=== PATIENT | male | born 1945 | race American Indian/Alaskan Native ===

== ENCOUNTER 2018-10-11 12:52 | Inpatient (IN) | payer MEDICARE ==
[2018-10-11] MEDS ORDERED: CATAPRES PO ONE (13:28)
[2018-10-11] MEDS ORDERED: CATAPRES ONE (13:31)
--- NOTE | 2018-10-11 13:52 | Emergency Department Report ---
HPI - General Chief Complaint: High BP Time Seen by Provider: 10/11/18 13:24 - HPI HPI: Room 25 The patient is a 72-year-old male presenting with a chief complaint of hypertension. The patient states he ran out of his blood pressure medication yesterday's physician's office today for evaluation. At physician's office the patient was found to be hypertensive at 224/110 and per the physician's documentation "malignant hypertension, hygiene, self-neglect, noncompliant, please evaluate." Patient denies any complaints 16:01 Up-to-date per social work. Family provides further history stating that the patient's son is unable to care for him at home and the patient's states that he is combative at times. 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) - Surgical History Additional Surgical History: Colostomy - Family History Family history: no significant - Social History Smoking Status: Unknown if ever smoked Substance Use Type: Alcohol (occasional) ED Review of Systems ROS: Stated complaint: HBP Other details as noted in HPI Constitutional: no symptoms reported Eyes: denies: eye pain ENT: denies: throat pain Respiratory: no symptoms reported Cardiovascular: denies: chest pain Endocrine: no symptoms reported Gastrointestinal: denies: abdominal pain Genitourinary: denies: dysuria Musculoskeletal: denies: back pain Neurological: denies: headache Physical Exam - Physical Exam Vital Signs: Vital Signs 10/11/18 13:22 Temperature 98.7 F Pulse Rate 98 H Respiratory 18 Rate Blood Pressure 234/124 O2 Sat by Pulse 96 Oximetry Physical Exam: GENERAL: The patient is well-developed well-nourished male lying on stretcher not appear to be in acute distress. Odor from colostomy bag is present HEENT: Normocephalic. Atraumatic. Extraocular motions are intact. Patient has moist mucous membranes. NECK: Supple. Trachea midline CHEST/LUNGS: Clear to auscultation. There is no respiratory distress noted. HEART/CARDIOVASCULAR: Regular. There is no tachycardia. There is no gallop rub or murmur. ABDOMEN: Abdomen is soft, nontender. Patient has normal bowel sounds. There is no abdominal distention. SKIN: There is no rash. There is no edema. There is no diaphoresis. NEURO: The patient is awake, alert, and oriented. The patient is cooperative. The patient has no focal neurologic deficits. The patient has normal speech. Cranial nerves II through XII grossly intact, no drift MUSCULOSKELETAL: There is no evidence of acute injury. ED Course Vital Signs 10/11/18 13:22 Temperature 98.7 F Pulse Rate 98 H Respiratory 18 Rate Blood Pressure 234/124 O2 Sat by Pulse 96 Oximetry ED Medical Decision Making - Lab Data Result diagrams: 10/11/18 13:44 10/11/18 13:44 - Differential Diagnosis hypertension Critical care attestation.: If time is entered above; I have spent that time in minutes in the direct care of this critically ill patient, excluding procedure time. ED Disposition Clinical Impression: Hypertension, Combative behavior Disposition: DC-09 OP ADMIT IP TO THIS HOSP Is pt being admited?: Yes Does the pt Need Aspirin: No Condition: Fair Instructions: Hypertension (ED) Time of Disposition: 16:02 (hospitalist paged (Dr Lopez))
[2018-10-11 14:12] LABS: Basophils % (Auto) 0.9 % (0.0-1.8); Eosinophils # (Auto) 0.1 K/mm3 (0.0-0.4); Hematocrit 46.1 % (35.5-45.6); Hemoglobin 15.4 gm/dl (11.8-15.2); Lymphocytes # (Auto) 1.5 K/mm3 (1.2-5.4); Mean Corpuscular HGB Conc 33 % (32-34); Mean Corpuscular Volume 97 fl (84-94); Monocytes # (Auto) 0.5 K/mm3 (0.0-0.8); Monocytes % (Auto) 8.5 % (0.0-7.3); Platelet Count 305 K/mm3 (140-440); Red Blood Count 4.76 M/mm3 (3.65-5.03); Red Cell Distribution Width 13.7 % (13.2-15.2)
[2018-10-11 14:26] LABS: BUN/Creatinine Ratio 15; Blood Urea Nitrogen 12 mg/dL (9-20); Calcium 9.2 mg/dL (8.4-10.2); Hemolysis Index 25
--- NOTE | 2018-10-11 16:02 | History and Physical Report ---
History of Present Illness Chief complaint: they playing games History of present illness: 72 YO Male with HTN, Cancer, Dementia, Medication Noncomplilance presents to ED for evaluation. Pt is confused and unable to provide coherent and detailed history. Pt history taken from ED staff, and medical record. Pt was seen by his Primary Care Physician today and was found to be hypertensive at 224/110. Pt subsequently transported to [facility] for further care and evaluation. Pt seen and evaluated in ED and found to have symptoms consistent with Hypertensive Encephalopathy. Pt admitted to [facility] unit and initiated on antihypertensive therapy. No further history obtainable. Past History Past Medical History: cancer, hypertension, other (Dementia) Past Surgical History: bowel surgery Social history: . denies: smoking, alcohol abuse, prescription drug abuse Family history: hypertension Medications and Allergies Allergies Allergy/AdvReac Type Severity Reaction Status Date / Time No Known Allergies Allergy Verified 10/11/18 13:22 Home Medications Medication Instructions Recorded Confirmed Last Taken Type Aspirin EC [Aspirin Enteric Coated 81 mg PO QDAY 10/11/18 10/11/18 Unknown History TAB] Atorvastatin Calcium [Lipitor] 40 mg PO QDAY 10/11/18 10/11/18 Unknown History FLUoxetine [PROzac] 20 mg PO QDAY 10/11/18 10/11/18 Unknown History Gabapentin [Neurontin] 300 mg PO BID 10/11/18 10/11/18 Unknown History Hydralazine HCl 25 mg PO BID 10/11/18 10/11/18 Unknown History Mirtazapine [Remeron] 15 mg PO QDAY 10/11/18 10/11/18 Unknown History Tamsulosin HCl [Flomax] 0.4 mg PO DAILY 10/11/18 10/11/18 Unknown History Verapamil ER [Calan Sr] 240 mg PO QDAY 10/11/18 10/11/18 Unknown History Review of Systems ROS unobtainable: due to mental status Exam - Constitutional Vitals: Temp Pulse Resp BP Pulse Ox 98.7 F 98 H 18 234/124 96 10/11/18 13:22 10/11/18 13:22 10/11/18 13:22 10/11/18 13:22 10/11/18 13:22 General appearance: Present: mild distress - EENT Eyes: Present: PERRL ENT: hearing intact, clear oral mucosa - Neck Neck: Present: supple, normal ROM - Respiratory Respiratory effort: normal Respiratory: bilateral: CTA - Cardiovascular Heart Sounds: Present: S1 & S2. Absent: rub, click - Extremities Extremities: pulses symmetrical, No edema Peripheral Pulses: within normal limits - Abdominal General gastrointestinal: Present: soft, non-tender, non-distended, normal bowel sounds Male genitourinary: Present: normal - Integumentary Integumentary: Present: clear, warm, dry - Musculoskeletal Musculoskeletal: gait normal, strength equal bilaterally - Psychiatric Psychiatric: no intact judgment & insight, no memory intact, cooperative - Neurologic Neurologic: CNII-XII intact, moves all extremities, no gait normal Results - Labs CBC & Chem 7: 10/11/18 13:44 10/11/18 13:44 Labs: Abnormal lab results 10/11/18 10/11/18 Range/Units 13:44 13:44 Hgb 15.4 H (11.8-15.2) gm/dl Hct 46.1 H (35.5-45.6) % MCV 97 H (84-94) fl [place] % (Auto) 8.5 H (0.0-7.3) % Carbon Dioxide 21 L (22-30) mmol/L Assessment and Plan - Patient Problems (1) Encephalopathy Current Visit: Yes Status: Acute Plan to address problem: CT Head, Neuro checks, aspiration precautions, seizure precautions, fall precautions, thyroid panel (2) Malignant hypertension Current Visit: Yes Status: Acute Plan to address problem: monitor BP q shift, Amlodipine, IV hydralazine prn, (3) Acidosis Current Visit: Yes Status: Acute Plan to address problem: supportive care, repeat bmp (4) DVT prophylaxis Current Visit: Yes Status: Acute Plan to address problem: SCD to BLe while in bed.
[2018-10-11] MEDS ORDERED: PROVENTIL IH PRN (16:03)
[2018-10-11] MEDS ORDERED: SODIUM CHLORIDE FLUSH SYRINGE 10 ML IV PRN (16:03)
[2018-10-11] MEDS ORDERED: ZOFRAN IV PRN (16:03)
[2018-10-11] MEDS ORDERED: APRESOLINE IV PRN (16:08)
--- NOTE | 2018-10-11 19:09 | Cat Scan Report ---
FINAL REPORT EXAM: CT HEAD/BRAIN WO CON HISTORY: confusion TECHNIQUE: CT head without contrast PRIORS: None. FINDINGS: No acute intra-axial or extra-axial hemorrhage is identified. There is no evidence of midline shift or mass effect. The ventricles and sulci are within normal limits. Chopra-white matter differentiation is intact. No acute parenchymal abnormalities seen. Bony calvarium is grossly intact. There is opacity within the visualized portions of the maxillary si nuses as well as ethmoid and frontal air cells more prominent on the left than on the right. IMPRESSION: Negative CT head
[2018-10-11 20:29] LABS: Free T4 (Free Thyroxine) 1.23 ng/dL (0.76-1.46)
[2018-10-11] MEDS: SODIUM CHLORIDE FLUSH SYRINGE 10 ML IV SCH (21:24)
[2018-10-11] MEDS: TYLENOL PO PRN (21:25)
[2018-10-12 05:35] LABS: Bacteria,Urine 2+ /HPF (Negative); Bilirubin,Urine NEG (Negative); Blood,Urine NEG (Negative); Color,Urine Yellow (Yellow); Mucus,Urine FEW /HPF; Urobilinogen,Urine < 2.0 mg/dL (<2.0)
[2018-10-12] MEDS: TYLENOL PO PRN ×2 (06:25→20:02)
--- NOTE | 2018-10-12 08:50 | Progress Note ---
Assessment and Plan Assessment and plan: 72 YO Male with HTN, Cancer, Dementia, Medication Noncompliance presents to ED for evaluation. Pt is confused and unable to provide coherent and detailed history. Pt history taken from ED staff, and medical record. Pt was seen by his Primary Care Physician today and was found to be hypertensive at 224/110. Pt subsequently transported to [facility] for further care and evaluation. Pt seen and evaluated in ED and found to have symptoms consistent with Hypertensive Encephalopathy. Pt admitted to [facility] unit and initiated on antihypertensive therapy. No further history obtainable. (1) Acute Metabolic Encephalopathy Current Visit: Yes Status: Acute Plan to address problem: CT Head Shows no acute pathology Neuro checks, aspiration precautions, seizure precautions, fall precautions, thyroid panel WNL (2) Malignant hypertension Current Visit: Yes Status: Acute Plan to address problem: monitor BP q shift, Amlodipine, IV hydralazine prn, Improved. (3) Acidosis Current Visit: Yes Status: Acute Plan to address problem: supportive care, repeat bmp (4) Acute Cystitis Start on Rocephin and await urine culture (5) DVT prophylaxis Current Visit: Yes Status: Acute Plan to address problem: SCD to BLe while in bed. Plan discussed with patient. Anticipate discharge in am. History Interval history: Patient is seen today for: AMS, Hypertensive urgency Seen and examined at bedside; 24hour events reviewed; nursing staff ; no adverse overnight events reported to me; Denies any chest pain, nausea, vomiting, diarrhea. Patient appears improved today, able to recall presidents name, some intermittent confusion vs slow response noted. No fever noted blood pressure controlled Hospitalist Physical - Physical exam Narrative exam: VITAL SIGNS: Reviewed. GENERAL: The patient appeared well nourished and normally developed. Vital signs as documented. HEAD: No signs of head trauma. EYES: Pupils are equal. Extraocular motions intact. EARS: Hearing grossly intact. MOUTH: Oropharynx is normal. NECK: No adenopathy, no JVD. CHEST: Chest with clear breath sounds bilaterally. No wheezes, rales, or rhonchi. CARDIAC: Regular rate and rhythm. S1 and S2, without murmurs, gallops, or rubs. VASCULAR: No Edema. Peripheral pulses normal and equal in all extremities. ABDOMEN: Soft, without detectable tenderness. No sign of distention. No rebound or guarding, and no masses palpated. Bowel Sounds normal. MUSCULOSKELETAL: Good range of motion of all major joints. Extremities without clubbing, cyanosis or edema. NEUROLOGIC EXAM: Alert and oriented x 2. No focal sensory or strength deficits. Speech normal. Follows commands. PSYCHIATRIC: Mood normal. SKIN: No rash or lesions. - Constitutional Vitals: Temp Pulse Resp BP Pulse Ox 98.3 F 90 18 138/78 100 10/12/18 03:03 10/12/18 06:50 10/12/18 03:03 10/12/18 03:03 10/12/18 03:07 General appearance: Present: mild distress Results - Labs CBC & Chem 7: 10/11/18 13:44 10/11/18 13:44 Labs: Laboratory Last Values WBC 5.6 K/mm3 (4.5-11.0) 10/11/18 13:44 RBC 4.76 M/mm3 (3.65-5.03) 10/11/18 13:44 Hgb 15.4 gm/dl (11.8-15.2) H 10/11/18 13:44 Hct 46.1 % (35.5-45.6) H 10/11/18 13:44 MCV 97 fl (84-94) H 10/11/18 13:44 MCH 32 pg (28-32) 10/11/18 13:44 MCHC 33 % (32-34) 10/11/18 13:44 RDW 13.7 % (13.2-15.2) 10/11/18 13:44 Plt Count 305 K/mm3 (140-440) 10/11/18 13:44 Lymph % (Auto) 26.0 % (13.4-35.0) 10/11/18 13:44 [place] % (Auto) 8.5 % (0.0-7.3) H 10/11/18 13:44 Eos % (Auto) 1.0 % (0.0-4.3) 10/11/18 13:44 Baso % (Auto) 0.9 % (0.0-1.8) 10/11/18 13:44 Lymph # 1.5 K/mm3 (1.2-5.4) 10/11/18 13:44 [place] # 0.5 K/mm3 (0.0-0.8) 10/11/18 13:44 Eos # 0.1 K/mm3 (0.0-0.4) 10/11/18 13:44 Baso # 0.0 K/mm3 (0.0-0.1) 10/11/18 13:44 Seg Neutrophils % 63.6 % (40.0-70.0) 10/11/18 13:44 Seg Neutrophils # 3.6 K/mm3 (1.8-7.7) 10/11/18 13:44 Sodium 139 mmol/L (137-145) 10/11/18 13:44 Potassium 4.2 mmol/L (3.6-5.0) 10/11/18 13:44 Chloride 103.6 mmol/L (98-107) 10/11/18 13:44 Carbon Dioxide 21 mmol/L (22-30) L 10/11/18 13:44 Anion Gap 19 mmol/L 10/11/18 13:44 BUN 12 mg/dL (9-20) 10/11/18 13:44 Creatinine 0.8 mg/dL (0.8-1.5) 10/11/18 13:44 Estimated GFR > 60 ml/min 10/11/18 13:44 BUN/Creatinine Ratio 15 % 10/11/18 13:44 Glucose 93 mg/dL (75-100) 10/11/18 13:44 Calcium 9.2 mg/dL (8.4-10.2) 10/11/18 13:44 TSH 1.170 mlU/mL (0.270-4.200) 10/11/18 17:58 Free T4 1.23 ng/dL (0.76-1.46) 10/11/18 17:58 Urine Color Yellow (Yellow) 10/12/18 Unknown Urine Turbidity Clear (Clear) 10/12/18 Unknown Urine pH 5.0 (5.0-7.0) 10/12/18 Unknown Ur Specific [place] 1.023 (1.003-1.030) 10/12/18 Unknown Urine Protein 30 mg/dl mg/dL (Negative) 10/12/18 Unknown Urine Glucose (UA) Neg mg/dL (Negative) 10/12/18 Unknown Urine Ketones Neg mg/dL (Negative) 10/12/18 Unknown Urine Blood Neg (Negative) 10/12/18 Unknown Urine Nitrite Neg (Negative) 10/12/18 Unknown Urine Bilirubin Neg (Negative) 10/12/18 Unknown Urine Urobilinogen < 2.0 mg/dL (<2.0) 10/12/18 Unknown Ur Leukocyte Esterase Neg (Negative) 10/12/18 Unknown Urine WBC (Auto) 8.0 /HPF (0.0-6.0) H 10/12/18 Unknown Urine RBC (Auto) 2.0 /HPF (0.0-6.0) 10/12/18 Unknown Urine Bacteria (Auto) 2+ /HPF (Negative) 10/12/18 Unknown Urine Mucus Few /HPF 10/12/18 Unknown - Imaging and Cardiology CT Scan - head: image reviewed (NO ACUTE PATHOLOGY)
[2018-10-12] MEDS: ROCEPHIN/NS 1 GM/50 ML 1 GM/50 ML BAG IV SCH (09:39)
[2018-10-12] MEDS: NORVASC PO SCH (09:40)
[2018-10-12] MEDS: SODIUM CHLORIDE FLUSH SYRINGE 10 ML IV SCH (09:40)
[2018-10-12] MEDS ORDERED: PNEUMOVAX 23 IM ONE (12:00)
--- NOTE | 2018-10-13 07:39 | Progress Note ---
Assessment and Plan Assessment and plan: 72 YO Male with HTN, Cancer, Dementia, Medication Noncompliance presents to ED for evaluation. Pt is confused and unable to provide coherent and detailed history. Pt history taken from ED staff, and medical record. Pt was seen by his Primary Care Physician today and was found to be hypertensive at 224/110. Pt subsequently transported to [facility] for further care and evaluation. Pt seen and evaluated in ED and found to have symptoms consistent with Hypertensive Encephalopathy. Pt admitted to [facility] unit and initiated on antihypertensive therapy. No further history obtainable. (1) Acute Metabolic Encephalopathy Current Visit: Yes Status: Acute Plan to address problem: CT Head Shows no acute pathology Neuro checks, aspiration precautions, seizure precautions, fall precautions, thyroid panel WNL (2) Malignant hypertension Current Visit: Yes Status: Acute Plan to address problem: Once again elevated overnight- Will restart all home meds, monitor for additional 24 hrs. Patient appears to have intermittent confusion. Family requested placement and is adamant about not taking the patient home. Patient does not appear to have any SNF needs. Will defer to case management. Per spouse, patient is unable to care for himself. He is forgetful. 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 Bills are unpaid or paid late. PCP was working on [facility] in the past. PCP is DR SALINAS. monitor BP q shift, Amlodipine, IV hydralazine prn, Increase hydralazine to 50mg q8hr Improved. (3) Acidosis Current Visit: Yes Status: Acute Plan to address problem: supportive care, (4) Acute Cystitis Continue on Rocephin and await urine culture (5) DVT prophylaxis Current Visit: Yes Status: Acute Plan to address problem: SCD to BLe while in bed. Plan discussed with patient. Anticipate discharge in am. History Interval history: Patient is seen today for: AMS, Hypertensive urgency Seen and examined at bedside; 24hour events reviewed; nursing staff ; no adverse overnight events reported to me; Denies any chest pain, nausea, vomiting, diarrhea. Patient appears improved today, reports that her physician still persist. I did speak with her spouse who would liketo place and person I did discuss with challenges with her she verbalized understanding Hospitalist Physical - Physical exam Narrative exam: VITAL SIGNS: Reviewed. GENERAL: The patient appeared well nourished and normally developed. Vital signs as documented. HEAD: No signs of head trauma. EYES: Pupils are equal. Extraocular motions intact. EARS: Hearing grossly intact. MOUTH: Oropharynx is normal. NECK: No adenopathy, no JVD. CHEST: Chest with clear breath sounds bilaterally. No wheezes, rales, or rhonchi. CARDIAC: Regular rate and rhythm. S1 and S2, without murmurs, gallops, or rubs. VASCULAR: No Edema. Peripheral pulses normal and equal in all extremities. ABDOMEN: Soft, without detectable tenderness. Colostomy. No sign of di stention. No rebound or guarding, and no masses palpated. Bowel Sounds normal. MUSCULOSKELETAL: Good range of motion of all major joints. Extremities without clubbing, cyanosis or edema. NEUROLOGIC EXAM: Alert and oriented x 2. No focal sensory or strength deficits. Speech normal. Follows commands. PSYCHIATRIC: Mood normal. SKIN: No rash or lesions. - Constitutional Vitals: Temp Pulse Resp BP Pulse Ox 98.6 F 84 20 195/116 97 10/13/18 01:56 10/13/18 01:56 10/13/18 01:56 10/13/18 01:56 10/13/18 01:56 General appearance: Present: mild distress Results - Labs CBC & Chem 7: 10/11/18 13:44 10/11/18 13:44 Labs: Laboratory Last Values WBC 5.6 K/mm3 (4.5-11.0) 10/11/18 13:44 RBC 4.76 M/mm3 (3.65-5.03) 10/11/18 13:44 Hgb 15.4 gm/dl (11.8-15.2) H 10/11/18 13:44 Hct 46.1 % (35.5-45.6) H 10/11/18 13:44 MCV 97 fl (84-94) H 10/11/18 13:44 MCH 32 pg (28-32) 10/11/18 13:44 MCHC 33 % (32-34) 10/11/18 13:44 RDW 13.7 % (13.2-15.2) 10/11/18 13:44 Plt Count 305 K/mm3 (140-440) 10/11/18 13:44 Lymph % (Auto) 26.0 % (13.4-35.0) 10/11/18 13:44 [place] % (Auto) 8.5 % (0.0-7.3) H 10/11/18 13:44 Eos % (Auto) 1.0 % (0.0-4.3) 10/11/18 13:44 Baso % (Auto) 0.9 % (0.0-1.8) 10/11/18 13:44 Lymph # 1.5 K/mm3 (1.2-5.4) 10/11/18 13:44 [place] # 0.5 K/mm3 (0.0-0.8) 10/11/18 13:44 Eos # 0.1 K/mm3 (0.0-0.4) 10/11/18 13:44 Baso # 0.0 K/mm3 (0.0-0.1) 10/11/18 13:44 Seg Neutrophils % 63.6 % (40.0-70.0) 10/11/18 13:44 Seg Neutrophils # 3.6 K/mm3 (1.8-7.7) 10/11/18 13:44 Sodium 139 mmol/L (137-145) 10/11/18 13:44 Potassium 4.2 mmol/L (3.6-5.0) 10/11/18 13:44 Chloride 103.6 mmol/L (98-107) 10/11/18 13:44 Carbon Dioxide 21 mmol/L (22-30) L 10/11/18 13:44 Anion Gap 19 mmol/L 10/11/18 13:44 BUN 12 mg/dL (9-20) 10/11/18 13:44 Creatinine 0.8 mg/dL (0.8-1.5) 10/11/18 13:44 Estimated GFR > 60 ml/min 10/11/18 13:44 BUN/Creatinine Ratio 15 % 10/11/18 13:44 Glucose 93 mg/dL (75-100) 10/11/18 13:44 Calcium 9.2 mg/dL (8.4-10.2) 10/11/18 13:44 TSH 1.170 mlU/mL (0.270-4.200) 10/11/18 17:58 Free T4 1.23 ng/dL (0.76-1.46) 10/11/18 17:58 Urine Color Yellow (Yellow) 10/12/18 Unknown Urine Turbidity Clear (Clear) 10/12/18 Unknown Urine pH 5.0 (5.0-7.0) 10/12/18 Unknown Ur Specific [place] 1.023 (1.003-1.030) 10/12/18 Unknown Urine Protein 30 mg/dl mg/dL (Negative) 10/12/18 Unknown Urine Glucose (UA) Neg mg/dL (Negative) 10/12/18 Unknown Urine Ketones Neg mg/dL (Negative) 10/12/18 Unknown Urine Blood Neg (Negative) 10/12/18 Unknown Urine Nitrite Neg (Negative) 10/12/18 Unknown Urine Bilirubin Neg (Negative) 10/12/18 Unknown Urine Urobilinogen < 2.0 mg/dL (<2.0) 10/12/18 Unknown Ur Leukocyte Esterase Neg (Negative) 10/12/18 Unknown Urine WBC (Auto) 8.0 /HPF (0.0-6.0) H 10/12/18 Unknown Urine RBC (Auto) 2.0 /HPF (0.0-6.0) 10/12/18 Unknown Urine Bacteria (Auto) 2+ /HPF (Negative) 10/12/18 Unknown Urine Mucus Few /HPF 10/12/18 Unknown Nutrition/Malnutrition Assess - Dietary Evaluation Nutrition/Malnutrition Findings: Nutrition Notes Start: 10/12/18 11:56 Freq: Status: Active Protocol: Document 10/12/18 11:56 CT (Rec: 10/12/18 11:57 CT [id number]) Co-Sign 10/12/18 11:56 RM Nutrition Notes Need for Assessment generated from: farm machinery engine mechanic Initial or Follow up Brief Note Subjective/Other Information RD screen for skin risk. Danny 22. Nutrition Intervention Revisit per MD consult or patient Sign Off request:
[2018-10-13] MEDS: APRESOLINE PO SCH ×3 (08:11→22:38)
[2018-10-13] MEDS ORDERED: APRESOLINE PO SCH (10:00)
[2018-10-13] MEDS: ROCEPHIN/NS 1 GM/50 ML 1 GM/50 ML BAG IV SCH (10:11)
[2018-10-13] MEDS: HALFPRIN EC PO SCH (10:12)
[2018-10-13] MEDS: NORVASC PO SCH (10:12)
[2018-10-13] MEDS: REMERON PO SCH (10:12)
[2018-10-13] MEDS: PROzac PO SCH (10:13)
[2018-10-13] MEDS: SODIUM CHLORIDE FLUSH SYRINGE 10 ML IV SCH ×2 (10:13→22:38)
[2018-10-13] MEDS: FLOMAX PO SCH (10:17)
[2018-10-13] MEDS: NEURONTIN PO SCH ×2 (10:17→22:37)
[2018-10-13] MEDS: CALAN SR PO SCH (10:29)
[2018-10-14] MEDS: APRESOLINE PO SCH (06:19)
[2018-10-14] MEDS: ROCEPHIN/NS 1 GM/50 ML 1 GM/50 ML BAG IV SCH (09:35)
[2018-10-14] MEDS: CALAN SR PO SCH (09:38)
[2018-10-14] MEDS: FLOMAX PO SCH (09:38)
[2018-10-14] MEDS: HALFPRIN EC PO SCH (09:39)
[2018-10-14] MEDS: NEURONTIN PO SCH (09:39)
[2018-10-14] MEDS: REMERON PO SCH (09:39)
[2018-10-14] MEDS: PROzac PO SCH (09:39)
[2018-10-14] MEDS: NORVASC PO SCH (09:39)
[2018-10-14 09:40] VITALS: BP 209/101
[2018-10-14] MEDS: SODIUM CHLORIDE FLUSH SYRINGE 10 ML IV SCH (09:40)
[2018-10-14] MEDS ORDERED: NORMODYNE PO SCH (10:38)
[2018-10-14] MEDS ORDERED: APRESOLINE PO SCH ×2 (10:39→10:50)
--- NOTE | 2018-10-14 10:59 | Discharge Summary ---
Providers - Providers Date of Admission: 10/11/18 16:03 Attending physician: PERRI BROOKE MD 10/11/18 13:44 Consult to Case Management [CONS] Urgent Services Needed at Discharge: Catering Administrative Assistant Notified:: yes 10/12/18 08:47 Physical Therapy Evaluation and Treat [CONS] Routine Comment: Reason For Exam: Family desiring senior care placement 10/13/18 09:41 Consult to Case Management [CONS] Routine Services Needed at Discharge: Catering Administrative Assistant Notified:: yes Time called:: 09:52 Comment:: dr. brooke [facility] Additional Physician Instructions: Per spouse, patient is unable to care for himself. He is forgetfull. 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 Bills are unpaid or paid late. Primary care physician: FACTORY REPRESENTATIVE Hospitalization Reason for admission: hypertensive encephalopathy Condition: Stable Hospital course: 72 YO Male with HTN, Cancer, Dementia, Medication Noncompliance presents to ED for evaluation. Pt is confused and unable to provide coherent and detailed h istory. Pt history taken from ED staff, and medical record. Pt was seen by his Primary Care Physician today and was found to be hypertensive at 224/110. Pt subsequently transported to [facility] for further care and evaluation. Pt seen and evaluated in ED and found to have symptoms consistent with Hypertensive Encephalopathy. Pt admitted to [facility] unit and initiated on antihypertensive therapy. Patient was treated with BP Control and adjustment of medication. We discussed with the and as noted. Family requested placement and is adamant about not taking the patient home. Patient does not appear to have any SNF needs. Will defer to case management. Per spouse, patient is unable to care for himself. He is forgetful. 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 Bills are unpaid or paid late. PCP was working on group home in the past. PCP is DR SALINAS. Patient repeat BP showed systolic of 150 (1) Acute Metabolic Encephalopathy (2) Malignant hypertension (3) Acidosis (4) Acute Cystitis (5) Hypertensive Encephalopathy Disposition: DC/[place]-06 HOME UNDER HOME HLTH Time spent for discharge: 35 mins Core Measure Documentation - Palliative Care Palliative Care/ Comfort Measures: Not Applicable - Core Measures Any of the following diagnoses?: none Exam - Physical Exam Narrative exam: VITAL SIGNS: Reviewed. GENERAL: The patient appeared well nourished and normally developed. Vital signs as documented. HEAD: No signs of head trauma. EYES: Pupils are equal. Extraocular motions intact. EARS: Hearing grossly intact. MOUTH: Oropharynx is normal. NECK: No adenopathy, no JVD. CHEST: Chest with clear breath sounds bilaterally. No wheezes, rales, or rhonchi. CARDIAC: Regular rate and rhythm. S1 and S2, without murmurs, gallops, or rubs. VASCULAR: No Edema. Peripheral pulses normal and equal in all extremities. ABDOMEN: Soft, without detectable tenderness. Colostomy. No sign of dist ention. No rebound or guarding, and no masses palpated. Bowel Sounds normal. MUSCULOSKELETAL: Good range of motion of all major joints. Extremities without clubbing, cyanosis or edema. NEUROLOGIC EXAM: Alert and oriented x 2. No focal sensory or strength deficits. Speech normal. Follows commands. PSYCHIATRIC: Mood normal. SKIN: No rash or lesions. - Constitutional Vitals: Temp Pulse Resp BP Pulse Ox 98.5 F 100 H 20 209/101 98 10/14/18 07:53 10/14/18 07:53 10/14/18 07:53 10/14/18 09:39 10/14/18 07:53 Plan Activity: advance as tolerated, fall precautions Special Instructions: record daily BP diary Follow up with: PRIMARY CARE, [Primary Care Provider] - 3-5 Days Prescriptions: hydrALAZINE [Apresoline TAB] 50 mg PO Q8HR #90 tab Verapamil ER [Calan SR] 240 mg PO QDAY #30 tablet
== END 2018-10-14 13:32 | disposition home health service (06) | DRG 77 ==
LOC: ED 12:52 → EDBD 16:03 → 2B-ACE 16:03
PROVIDERS: ADMIT Internal Medicine; ATTEND Internal Medicine
PROC: 3E0234Z Introduction of Serum, Toxoid and Vaccine into Muscle, Percutaneous Approach (ICD-10-PCS; principal; 2018-10-12)
DX: I67.4 Hypertensive encephalopathy (principal); G93.41 Metabolic encephalopathy; N30.00 Acute cystitis without hematuria; E87.2 Acidosis; I10 Essential (primary) hypertension; F03.90 Unspecified dementia, unspecified severity, without behavioral disturbance, psychotic disturbance, mood disturbance, and anxiety; Z93.3 Colostomy status; Z23 Encounter for immunization; Z91.14 Patient's other noncompliance with medication regimen; Z82.49 Family history of ischemic heart disease and other diseases of the circulatory system; Z79.82 Long term (current) use of aspirin
CPT/HCPCS: 36415; 70450; 80048; 81001; 84439; 84443; 85025; 87076; 87086; 87186; 90732; 96374; G0378; A9270-GY; J0360; J0696; J2405